=== PATIENT | male | born 1950 | race Caucasian/White ===

== ENCOUNTER 2019-05-15 07:09 | Inpatient (IN) | payer MEDICARE, MEDICAID ==
[~2019-05-15] VITALS: Ht 182.9 cm; Wt 67.6 kg
[2019-05-15] MEDS ORDERED: MORPHINE SULFATE 4 MG/ML CPJ (NOT FOR IM USE) IV STA (07:43)
[2019-05-15] MEDS ORDERED: ONDANSETRON HCL 4MG/2ML INJ IV STA (07:43)
[2019-05-15] MEDS ORDERED: SODIUM CHLORIDE 0.9% 1,000 ML IV ONE (07:43)
[2019-05-15 07:52] LABS: BASOPHILS % 0.6 % (0.0-2.0); EOSINOPHILS % 0.1 % (0.0-5.0); HEMATOCRIT. 34.9 % (42.0-52.0); HEMOGLOBIN. 12.1 g/dL (14.0-18.0); LYMPHOCYTES % 9.1 % (20.0-50.0); MEAN CORPUSCULAR HEMOGLOBIN 33.9 pg (28.0-32.0); MEAN CORPUSCULAR VOLUME 97.8 fL (80.0-94.0); MEAN PLATELET VOLUME 8.9 fl (7.4-10.4); MONOCYTES % 7.5 % (2.0-8.0); NEUTROPHILS % 82.7 % (40.0-76.0); PLATELET 265 x1000/uL (130-400); RED BLOOD CELL COUNT 3.56 mill/uL (4.7-6.1); RED CELL DISTRIBUTION WIDTH 14.6 % (11.6-14.6)
[2019-05-15 07:59] LABS: CHLORIDE 97 mEq/L (98-107)
[2019-05-15] MEDS ORDERED: ACETAMINOPHEN 325MG TABLET PO PRN (11:15)
[2019-05-15] MEDS ORDERED: IPRATROPIUM/ALBUTEROL 0.5-3(2.5)MG/3ML NEB HHN PRN (11:15)
[2019-05-15] MEDS ORDERED: CLONIDINE 0.1MG TABLET PO PRN (11:15)
[2019-05-15 11:35] LABS: PHOSPHORUS 2.3 mg/dL (2.5-4.9)
[2019-05-15 12:01] LABS: VITAMIN B12 SERUM 792 pg/mL (211-911)
[2019-05-15] MEDS: ENOXAPARIN 40MG/0.4ML SYR SUBCUT SCH (12:20)
[2019-05-15] MEDS ORDERED: METOPROLOL TARTRATE 25MG TABLET PO SCH (12:30)
[2019-05-15] MEDS: METOPROLOL TARTRATE 25MG TABLET PO SCH ×2 (12:47→20:19)
[2019-05-15] MEDS ORDERED: LORAZEPAM 2MG/ML CPJ IV SCH (15:30)
[2019-05-15] MEDS ORDERED: MAGNESIUM 2 G PREMIX 50 ML IV SCH (15:45)
[2019-05-15 16:35] VITALS: BP 99/69
[2019-05-15] MEDS ORDERED: LORAZEPAM 2MG/ML CPJ IV PRN (17:30)
[2019-05-15] MEDS ORDERED: DEXTROSE 50% WATER 50ML SYRINGE IV PRN (18:30)
[2019-05-15] MEDS: DIPHENHYDRAMINE 50MG/ML VIAL IV PRN (20:03)
[2019-05-15 20:09] VITALS: BP 101/60
[2019-05-15] MEDS: CHLORDIAZEPOXIDE 25MG CAPSULE PO SCH (20:15)
[2019-05-15] MEDS: BLOOD SUGAR DIAGNOSTIC STRIP TEST SCH (20:19)
[2019-05-15] MEDS: INSULIN LISPRO 100 UNITS/ML SUBCUT SCH (20:19)
[2019-05-16] VITALS: BP 100/70
[2019-05-16 04:00] VITALS: BP 136/71
[2019-05-16 05:49] LABS: BASOPHILS % 0.8 % (0.0-2.0); EOSINOPHILS % 2.1 % (0.0-5.0); HEMATOCRIT. 34.2 % (42.0-52.0); HEMOGLOBIN. 11.8 g/dL (14.0-18.0); LYMPHOCYTES % 28.7 % (20.0-50.0); MEAN CORPUSCULAR HEMOGLOBIN 33.9 pg (28.0-32.0); MEAN CORPUSCULAR VOLUME 98.5 fL (80.0-94.0); MEAN PLATELET VOLUME 8.9 fl (7.4-10.4); MONOCYTES % 10.1 % (2.0-8.0); NEUTROPHILS % 58.3 % (40.0-76.0); PLATELET 189 x1000/uL (130-400); RED BLOOD CELL COUNT 3.47 mill/uL (4.7-6.1); RED CELL DISTRIBUTION WIDTH 14.3 % (11.6-14.6)
[2019-05-16 06:26] LABS: CHLORIDE 104 mEq/L (98-107)
[2019-05-16] MEDS: CHLORDIAZEPOXIDE 25MG CAPSULE PO SCH ×3 (06:28→21:03)
[2019-05-16 06:45] LABS: HDL CHOLESTEROL 69 mg/dL (40-59); LDL CHOLESTEROL 77 mg/dL (5-100)
[2019-05-16] MEDS: BLOOD SUGAR DIAGNOSTIC STRIP TEST SCH ×4 (07:21→21:03)
[2019-05-16] MEDS: INSULIN LISPRO 100 UNITS/ML SUBCUT SCH ×4 (07:22→21:00)
[2019-05-16 08:00] VITALS: BP 124/87
[2019-05-16] MEDS: METOPROLOL TARTRATE 25MG TABLET PO SCH ×2 (08:34→21:03)
[2019-05-16 12:00] VITALS: BP 117/77
[2019-05-16] MEDS: ENOXAPARIN 40MG/0.4ML SYR SUBCUT SCH (12:26)
[2019-05-16] MEDS: DIPHENHYDRAMINE 50MG/ML VIAL IV PRN (13:36)
[2019-05-16] MEDS: ONDANSETRON HCL 4MG/2ML INJ IV PRN (13:36)
[2019-05-16 20:00] VITALS: BP 138/81
[2019-05-17 00:09] VITALS: BP 120/80
[2019-05-17 04:00] VITALS: BP 116/78
[2019-05-17 06:06] LABS: BASOPHILS % 0.6 % (0.0-2.0); EOSINOPHILS % 5.1 % (0.0-5.0); HEMATOCRIT. 37.4 % (42.0-52.0); HEMOGLOBIN. 12.8 g/dL (14.0-18.0); LYMPHOCYTES % 23.8 % (20.0-50.0); MEAN CORPUSCULAR VOLUME 99.1 fL (80.0-94.0); MEAN PLATELET VOLUME 9.2 fl (7.4-10.4); MONOCYTES % 8.3 % (2.0-8.0); NEUTROPHILS % 62.2 % (40.0-76.0); PLATELET 172 x1000/uL (130-400); RED BLOOD CELL COUNT 3.77 mill/uL (4.7-6.1); RED CELL DISTRIBUTION WIDTH 14.5 % (11.6-14.6)
[2019-05-17 06:08] LABS: CHLORIDE 107 mEq/L (98-107)
[2019-05-17] MEDS: CHLORDIAZEPOXIDE 25MG CAPSULE PO SCH ×3 (06:22→21:50)
[2019-05-17] MEDS: BLOOD SUGAR DIAGNOSTIC STRIP TEST SCH ×3 (07:20→21:50)
[2019-05-17] MEDS: INSULIN LISPRO 100 UNITS/ML SUBCUT SCH ×3 (07:50→21:51)
[2019-05-17 08:22] VITALS: BP 121/82
[2019-05-17] MEDS: METOPROLOL TARTRATE 25MG TABLET PO SCH ×2 (09:32→21:50)
[2019-05-17 11:41] VITALS: BP 97/66
[2019-05-17] MEDS: ENOXAPARIN 40MG/0.4ML SYR SUBCUT SCH (11:44)
[2019-05-17 15:48] VITALS: BP 96/56
[2019-05-17 20:00] VITALS: BP 110/76
[2019-05-18] VITALS (7 sets, daily range): BP systolic 77–130; BP diastolic 50–77
[2019-05-18] MEDS: CHLORDIAZEPOXIDE 25MG CAPSULE PO SCH ×3 (05:13→21:18)
[2019-05-18] MEDS: BLOOD SUGAR DIAGNOSTIC STRIP TEST SCH ×4 (07:08→21:18)
[2019-05-18] MEDS: INSULIN LISPRO 100 UNITS/ML SUBCUT SCH ×4 (07:50→21:00)
[2019-05-18] MEDS: METOPROLOL TARTRATE 25MG TABLET PO SCH ×2 (11:54→21:18)
[2019-05-18] MEDS: ENOXAPARIN 40MG/0.4ML SYR SUBCUT SCH (11:59)
[2019-05-18] MEDS: SODIUM CHLORIDE 0.9% 1,000 ML IV SCH ×2 (12:43→21:19)
[2019-05-18 13:46] LABS: HEPATITIS B SURFACE ANTIGEN NEGATIVE
[2019-05-18 14:15] LABS: HEPATITIS A AB IGM NEGATIVE (NEGATIVE)
[2019-05-19] VITALS: BP 124/81
[2019-05-19] MEDS: ONDANSETRON HCL 4MG/2ML INJ IV PRN (00:47)
[2019-05-19 04:00] VITALS: BP 117/79
[2019-05-19] MEDS: CHLORDIAZEPOXIDE 25MG CAPSULE PO SCH ×3 (05:54→21:00)
[2019-05-19] MEDS: BLOOD SUGAR DIAGNOSTIC STRIP TEST SCH ×4 (06:22→20:08)
[2019-05-19] MEDS: INSULIN LISPRO 100 UNITS/ML SUBCUT SCH ×4 (07:50→20:08)
[2019-05-19] MEDS: SODIUM CHLORIDE 0.9% 1,000 ML IV SCH ×2 (07:57→18:49)
[2019-05-19 08:00] LABS: CHLORIDE 108 mEq/L (98-107)
[2019-05-19 08:06] LABS: BASOPHILS % 0.5 % (0.0-2.0); EOSINOPHILS % 4.5 % (0.0-5.0); HEMATOCRIT. 39.2 % (42.0-52.0); HEMOGLOBIN. 13.2 g/dL (14.0-18.0); LYMPHOCYTES % 19.5 % (20.0-50.0); MEAN CORPUSCULAR HEMOGLOBIN 33.6 pg (28.0-32.0); MEAN CORPUSCULAR VOLUME 99.5 fL (80.0-94.0); MEAN PLATELET VOLUME 9.8 fl (7.4-10.4); MONOCYTES % 9.1 % (2.0-8.0); NEUTROPHILS % 66.4 % (40.0-76.0); PLATELET 181 x1000/uL (130-400); RED BLOOD CELL COUNT 3.94 mill/uL (4.7-6.1); RED CELL DISTRIBUTION WIDTH 14.4 % (11.6-14.6)
[2019-05-19 08:20] VITALS: BP 100/58
[2019-05-19] MEDS: METOPROLOL TARTRATE 25MG TABLET PO SCH ×2 (08:21→20:08)
[2019-05-19] MEDS: MIDODRINE HCL 5MG TABLET PO SCH ×2 (10:25→17:54)
[2019-05-19] MEDS: ENOXAPARIN 40MG/0.4ML SYR SUBCUT SCH (11:08)
[2019-05-19 16:00] VITALS: BP 110/66
[2019-05-19 20:00] VITALS: BP 99/61
[2019-05-20] VITALS: BP 106/61
[2019-05-20] MEDS: SODIUM CHLORIDE 0.9% 1,000 ML IV SCH ×3 (03:58→23:45)
[2019-05-20 04:00] VITALS: BP 108/64
[2019-05-20] MEDS: CHLORDIAZEPOXIDE 25MG CAPSULE PO SCH ×3 (06:00→21:01)
[2019-05-20] MEDS: BLOOD SUGAR DIAGNOSTIC STRIP TEST SCH ×4 (06:00→20:39)
[2019-05-20] MEDS: INSULIN LISPRO 100 UNITS/ML SUBCUT SCH ×4 (06:22→20:40)
[2019-05-20 07:12] LABS: BASOPHILS % 0.6 % (0.0-2.0); EOSINOPHILS % 6.4 % (0.0-5.0); HEMATOCRIT. 35.7 % (42.0-52.0); HEMOGLOBIN. 12.1 g/dL (14.0-18.0); LYMPHOCYTES % 23.1 % (20.0-50.0); MEAN CORPUSCULAR HEMOGLOBIN 33.9 pg (28.0-32.0); MEAN CORPUSCULAR VOLUME 99.9 fL (80.0-94.0); MEAN PLATELET VOLUME 9.5 fl (7.4-10.4); MONOCYTES % 10.8 % (2.0-8.0); NEUTROPHILS % 59.1 % (40.0-76.0); PLATELET 153 x1000/uL (130-400); RED BLOOD CELL COUNT 3.57 mill/uL (4.7-6.1); RED CELL DISTRIBUTION WIDTH 14.6 % (11.6-14.6)
[2019-05-20 07:14] LABS: CHLORIDE 110 mEq/L (98-107)
[2019-05-20 08:00] VITALS: BP 116/79
[2019-05-20] MEDS: METOPROLOL TARTRATE 25MG TABLET PO SCH ×2 (10:30→20:39)
[2019-05-20] MEDS: MIDODRINE HCL 5MG TABLET PO SCH ×2 (10:30→16:37)
[2019-05-20] MEDS: ENOXAPARIN 40MG/0.4ML SYR SUBCUT SCH (11:41)
[2019-05-20] MEDS ORDERED: METO25TA6 PO (11:58)
[2019-05-20 12:00] VITALS: BP 106/59
[2019-05-20 15:29] LABS: PROTHROMBIN TIME 10.4 sec (9.6-11.0)
[2019-05-20 16:53] VITALS: BP 148/93
[2019-05-20 20:00] VITALS: BP 109/58
[2019-05-21] VITALS: BP 118/80
[2019-05-21] MEDS: ONDANSETRON HCL 4MG/2ML INJ IV PRN (02:02)
[2019-05-21 04:00] VITALS: BP 120/74
[2019-05-21 06:41] LABS: BASOPHILS % 0.5 % (0.0-2.0); EOSINOPHILS % 3.1 % (0.0-5.0); HEMATOCRIT. 34.8 % (42.0-52.0); HEMOGLOBIN. 12.1 g/dL (14.0-18.0); MEAN CORPUSCULAR HEMOGLOBIN 34.1 pg (28.0-32.0); MEAN CORPUSCULAR VOLUME 98.4 fL (80.0-94.0); MEAN PLATELET VOLUME 10.2 fl (7.4-10.4); MONOCYTES % 9.7 % (2.0-8.0); NEUTROPHILS % 70.7 % (40.0-76.0); PLATELET 151 x1000/uL (130-400); RED BLOOD CELL COUNT 3.54 mill/uL (4.7-6.1); RED CELL DISTRIBUTION WIDTH 14.6 % (11.6-14.6)
[2019-05-21] MEDS: BLOOD SUGAR DIAGNOSTIC STRIP TEST SCH ×2 (06:54→11:57)
[2019-05-21] MEDS: INSULIN LISPRO 100 UNITS/ML SUBCUT SCH ×2 (06:54→12:15)
[2019-05-21 08:00] VITALS: BP_SYST 97
[2019-05-21] MEDS: METOPROLOL TARTRATE 25MG TABLET PO SCH (09:00)
[2019-05-21] MEDS: MIDODRINE HCL 5MG TABLET PO SCH (09:04)
[2019-05-21] MEDS: SODIUM CHLORIDE 0.9% 1,000 ML IV SCH (09:07)
[2019-05-21] MEDS: ENOXAPARIN 40MG/0.4ML SYR SUBCUT SCH (11:39)
[2019-05-21 12:00] VITALS: BP 118/80
[2019-05-21 15:48] VITALS: BP 118/80
== END 2019-05-21 16:23 | disposition home or self-care (01) | DRG 241 ==
LOC: ER 07:09 → 6WST 11:09 → ENRESERV 16:07 → 5WST 05-19 11:15
PROVIDERS: ADMIT Internal Medicine; ATTEND Internal Medicine
DX: K29.70 Gastritis, unspecified, without bleeding (principal); D72.1 Eosinophilia; D53.9 Nutritional anemia, unspecified; E83.42 Hypomagnesemia; E83.39 Other disorders of phosphorus metabolism; I07.1 Rheumatic tricuspid insufficiency; K86.1 Other chronic pancreatitis; I25.10 Atherosclerotic heart disease of native coronary artery without angina pectoris; F10.20 Alcohol dependence, uncomplicated; I95.1 Orthostatic hypotension; K44.9 Diaphragmatic hernia without obstruction or gangrene; K70.30 Alcoholic cirrhosis of liver without ascites; I37.1 Nonrheumatic pulmonary valve insufficiency; B18.2 Chronic viral hepatitis C; M48.54XA Collapsed vertebra, not elsewhere classified, thoracic region, initial encounter for fracture; M48.56XA Collapsed vertebra, not elsewhere classified, lumbar region, initial encounter for fracture; R21 Rash and other nonspecific skin eruption; Z59.0 Homelessness
CPT/HCPCS: 36415; 71045; 74176; 80048; 80053; 80061; 80076; 82140; 82607; 82962; 82977; 83036; 83735; 83880; 84100; 84443; 84484; 85025; 86705; 86709; 86803; 87340; 88302; 93005; 93306; 93970; 97162; 99285; J1200; J1650; J1815; J2270; J2405; J3475; J7030